=== PATIENT | female | born 1995 | race Two or more races ===

== ENCOUNTER 2017-08-18 17:56 | Emergency (ER) | payer SELFPAY ==
[~2017-08-18] VITALS: Ht 157.5 cm; Wt 55.8 kg
[~2017-08-18 17:56] MED LIST: HYDROCODON-ACETAMINOPHEN; OXYCODONE-ACETAMINOPHEN; TRAM50TA2
[2017-08-18 18:08] VITALS: BP 121/80
[2017-08-18 18:45] LABS: Urine Bilirubin Negative (Negative); Urine Blood Negative /uL (Negative); Urine Color Yellow (Yellow); Urine Glucose Normal (Normal); Urine Ketone Negative (Negative); Urine Mucus FEW (None Seen); Urine Nitrite Negative (Negative); Urine RBC 1 /hpf (0 - 4); Urine Squamous Epithelial Cell FEW /hpf (<5); Urine Urobilinogen Normal (Negative); Urine pH 6.5 (5.0-8.0)
[2017-08-18 19:18] LABS: Basophils # (auto) 0 uL; Basophils % (auto) 0.4 % (0.0-2.0); Eosinophils # (auto) 0.1 uL; Eosinophils % (auto) 0.7 % (0.0-7.0); Hematocrit 40.9 % (36.0-46.0); Hemoglobin 14.1 g/dL (12.2-16.2); Lymphocytes # (auto) 2.6 uL; Lymphocytes % (auto) 27.1 % (10.0-50.0); Mean Corpuscular Hemoglobin 30.4 pg (28.0-32.0); Mean Corpuscular Hgb Conc. 34.6 g/dL (32.0-36.0); Mean Corpuscular Volume 88.1 fL (80.0-100.0); Monocytes # (auto) 0.5 uL; Monocytes % (auto) 4.9 % (0.0-12.0); Neutrophils # (auto) 6.5 uL; Neutrophils % (auto) 66.9 % (37.0-80.0); Nucleated Red Blood Cells % 0.1 %; Platelet Count (auto) 381 10^3/uL (140-450); Red Cell Distribution Width 13.4 % (11.8-14.3); White Blood Cell 9.6 10^3/uL (4.4-10.8)
[2017-08-18 19:20] LABS: Albumin 4.2 g/dL (3.4-5.0); BUN/Creatinine Ratio 26.1; Bilirubin, Total 0.3 mg/dL (0.2-1.0); Calcium 9.2 mg/dL (8.5-10.1); Potassium 3.5 mmol/L (3.5-5.1); Total Protein 8.1 g/dL (6.4-8.2)
== END 2017-08-19 01:59 | disposition left against medical advice (07) ==
LOC: ER 18:04
DX: R10.30 Lower abdominal pain, unspecified (principal); Z53.21 Procedure and treatment not carried out due to patient leaving prior to being seen by health care provider
CPT/HCPCS: 36415; 80053; 81001; 81025; 85025

== ENCOUNTER 2022-03-02 17:12 | Emergency (ER) | payer MEDICAID ==
[~2022-03-02] VITALS: Ht 157.5 cm; Wt 70.3 kg
[2022-03-02 19:07] LABS: Basophils # (auto) 0 10 ^3/uL (0-0.2); Hemoglobin 11.1 g/dL (12.2-16.2); Nucleated Red Blood Cells % 0.1 %
[2022-03-02 19:10] LABS: Basophils % (auto) 0.2 % (0.0-2.0); Eosinophils # (auto) 0 10 ^3/uL (0-0.8); Eosinophils % (auto) 0.3 % (0.0-7.0); Hematocrit 32.6 % (36.0-46.0); Lymphocytes # (auto) 3.9 10 ^3/uL (0.4-5.4); Lymphocytes % (auto) 27.8 % (10.0-50.0); Mean Corpuscular Hgb Conc. 34.1 g/dL (32.0-36.0); Mean Corpuscular Volume 76.4 fL (80.0-100.0); Monocytes # (auto) 0.6 10 ^3/uL (0-1.3); Monocytes % (auto) 4.1 % (0.0-12.0); Neutrophils # (auto) 9.5 10 ^3/uL (1.6-8.6); Neutrophils % (auto) 67.6 % (37.0-80.0); Red Blood Cells 4.26 10^6/uL (4.0-5.20); Red Cell Distribution Width 14.2 % (11.8-14.3)
[2022-03-02 19:19] LABS: Albumin 3.2 g/dL (3.4-5.0); Calcium 8.8 mg/dL (8.5-10.1); Potassium 3.4 mmol/L (3.5-5.1)
[2022-03-02 19:23] LABS: Bilirubin, Total 0.2 mg/dL (0.2-1.0)
[2022-03-02] MEDS ORDERED: POTASSIUM CHL 20 Meq TABLET PO ONE (19:30)
[2022-03-02 19:47] LABS: Urine Amorphous Crystal FEW /hpf (None Seen); Urine Bacteria FEW /hpf (None Seen); Urine Blood Negative /uL (Negative); Urine Specific Gravity 1.017 (1.001-1.035); Urine WBC <1 /hpf (0 - 5)
[2022-03-02 20:28] LABS: BUN/Creatinine Ratio 18.3
== END 2022-03-02 21:04 | disposition home or self-care (01) ==
LOC: ER 17:12
DX: O26.891 Other specified pregnancy related conditions, first trimester (principal); E87.6 Hypokalemia; Z79.899 Other long term (current) drug therapy; Z88.8 Allergy status to other drugs, medicaments and biological substances; Z3A.09 9 weeks gestation of pregnancy
CPT/HCPCS: 36415; 80053; 81001; 84702; 85025

== ENCOUNTER 2022-05-19 16:51 | Observation (INO) | payer MEDICAID ==
[~2022-05-19] VITALS: Ht 157.5 cm; Wt 72.6 kg
[2022-05-19 18:03] LABS: Urine Bacteria NONE SEEN /hpf (None Seen); Urine Blood 2+ /uL (Negative); Urine Mucus FEW (None Seen); Urine Specific Gravity > 1.050 (1.001-1.035); Urine WBC 10 /hpf (0 - 5)
[2022-05-19 18:20] LABS: Amphetamine Screen, Urine NEGATIVE (NEGATIVE); Barbiturate Scree,Urine NEGATIVE (NEGATIVE); Benzodiazephine Screen, Urine NEGATIVE (NEGATIVE); Cannabinoid Screen, Urine NEGATIVE (NEGATIVE); Cocaine Screen, Urine NEGATIVE (NEGATIVE); Opiate Scree,Urine NEGATIVE (NEGATIVE); Phencyclidine Screen, Urine NEGATIVE (NEGATIVE)
[2022-05-19] MEDS ORDERED: PREN-96 PO (18:30)
[2022-05-19] MEDS ORDERED: NITR-87 PO (18:31)
[2022-05-19] MEDS: TERBUTALINE SULFATE 1 MG/ML 1ML VIAL SC SCH ×3 (18:47→19:44)
[2022-05-19] MEDS ORDERED: LACTATED RINGER'S 1,000 ML IV ONE (19:45)
[2022-05-19] MEDS ORDERED: ceFAZolin 2 GM in D5W 5% 100 ML IV ONE (19:45)
[2022-05-19] MEDS ORDERED: NIFEdipine 10 MG CAP PO ONE (19:45)
[2022-05-19] MEDS ORDERED: ceFAZolin 1GM/50ML 100 ML IV ONE (20:29)
[2022-05-19] MEDS ORDERED: ONDANSETRON HCL 4 MG/2 ML VIAL IV ONE (21:15)
[2022-06-01] MEDS ORDERED: NIF10C PO (03:44)
[2022-06-01] MEDS ORDERED: DOXY10TA OR (03:45)
[2022-06-01] MEDS ORDERED: HYDR250I6 IM (03:46)
== END 2022-05-19 22:59 | disposition home or self-care (01) ==
LOC: LDRP 16:51
PROVIDERS: ADMIT Obstetrics & Gynecology; ATTEND Obstetrics & Gynecology
DX: O62.9 Abnormality of forces of labor, unspecified (principal); O26.892 Other specified pregnancy related conditions, second trimester; R10.9 Unspecified abdominal pain; Z3A.20 20 weeks gestation of pregnancy; Z79.899 Other long term (current) drug therapy
CPT/HCPCS: 59025; 76815; 80307; 81001; 81002; 94760; 96361; 96365; 96372; 96375; G0378; J0690; J2405; J3105; J7060; 96360; 96374

== ENCOUNTER → 2022-05-26 | Outpatient (CLI) | payer MEDICAID ==
[~2022-05-26] MED LIST changes: +NITR-87 PO; +PREN-96 PO
[2022-05-26 09:53] LABS: Amphetamine Screen, Urine NEGATIVE (NEGATIVE); Barbiturate Scree,Urine NEGATIVE (NEGATIVE); Benzodiazephine Screen, Urine NEGATIVE (NEGATIVE); Cocaine Screen, Urine NEGATIVE (NEGATIVE); Opiate Scree,Urine NEGATIVE (NEGATIVE)
[2022-05-26 10:09] LABS: Cannabinoid Screen, Urine NEGATIVE (NEGATIVE); Phencyclidine Screen, Urine NEGATIVE (NEGATIVE)
[2022-05-27 07:06] LABS: RPR Non Reactive (Non Reactive)
== END | disposition home or self-care (01) ==
LOC: LAB 08:25
PROVIDERS: ATTEND Obstetrics & Gynecology
DX: Z34.00 Encounter for supervision of normal first pregnancy, unspecified trimester (principal); Z31.430 Encounter of female for testing for genetic disease carrier status for procreative management
CPT/HCPCS: 36415; 80307; 84112; 86592; 86703; 86762; 86850; 86900; 86901; 87340

== ENCOUNTER 2022-06-10 18:11 | Observation (INO) | payer MEDICAID ==
[~2022-06-10] VITALS: Ht 157.5 cm; Wt 72.6 kg
[~2022-06-10 18:11] MED LIST changes: +DOXY10TA OR; +HYDR250I6 IM; +NIF10C PO
[2022-06-10] MEDS ORDERED: NITROFURANTOIN 100 mg CAP PO ONE (19:15)
[2022-06-10] MEDS ORDERED: TERBUTALINE SULFATE 1 MG/ML 1ML VIAL SC ONE (19:15)
== END 2022-06-10 20:18 | disposition home or self-care (01) ==
LOC: LDRP 18:11
PROVIDERS: ADMIT Obstetrics & Gynecology; ATTEND Obstetrics & Gynecology
DX: O62.9 Abnormality of forces of labor, unspecified (principal); O26.892 Other specified pregnancy related conditions, second trimester; R10.2 Pelvic and perineal pain; Z3A.23 23 weeks gestation of pregnancy
CPT/HCPCS: 59025; 81002; 94760; 96372; G0378; J3105

== ENCOUNTER 2022-06-22 11:43 | Observation (INO) | payer MEDICAID ==
[~2022-06-22] VITALS: Ht 157.5 cm; Wt 72.6 kg
[2022-06-22] MEDS ORDERED: LACTATED RINGER'S 1,000 ML IV ONE (12:00)
[2022-06-22] MEDS: TERBUTALINE SULFATE 1 MG/ML 1ML VIAL SC SCH ×2 (12:17→13:03)
[2022-06-22 12:43] LABS: Urine Bacteria NONE SEEN /hpf (None Seen); Urine Blood Negative /uL (Negative); Urine Specific Gravity 1.018 (1.001-1.035); Urine WBC 1 /hpf (0 - 5)
[2022-06-22 12:55] LABS: Alcohol, Urine < 3.0 mg/dL (0-10); Amphetamine Screen, Urine NEGATIVE (NEGATIVE); Barbiturate Scree,Urine NEGATIVE (NEGATIVE); Benzodiazephine Screen, Urine NEGATIVE (NEGATIVE); Cannabinoid Screen, Urine NEGATIVE (NEGATIVE); Cocaine Screen, Urine NEGATIVE (NEGATIVE); Opiate Scree,Urine NEGATIVE (NEGATIVE); Phencyclidine Screen, Urine NEGATIVE (NEGATIVE)
== END 2022-06-22 14:05 | disposition home or self-care (01) ==
LOC: LDRP 11:43 → UNDOADMOB 11:43 → LDRP 11:51
PROVIDERS: ADMIT Obstetrics & Gynecology; ATTEND Obstetrics & Gynecology
DX: O60.02 Preterm labor without delivery, second trimester (principal); O46.92 Antepartum hemorrhage, unspecified, second trimester; O62.9 Abnormality of forces of labor, unspecified; O26.892 Other specified pregnancy related conditions, second trimester; N89.8 Other specified noninflammatory disorders of vagina; R11.0 Nausea; Z3A.25 25 weeks gestation of pregnancy; Z79.899 Other long term (current) drug therapy
CPT/HCPCS: 59025; 76815; 80307; 81001; 81002; 94760; 96360; 96361; 96372; G0378; J3105

== ENCOUNTER 2022-07-12 10:11 | Observation (INO) | payer MEDICAID ==
[~2022-07-12] VITALS: Ht 30.5 cm; Wt 0.5 kg
[2022-07-12] MEDS ORDERED: LACTATED RINGER'S 1,000 ML IV ONE (10:45)
== END 2022-07-12 12:03 | disposition home or self-care (01) ==
LOC: UNDOADMOB 10:11 → LDRP 10:11 → UNDODISOB 12:03
PROVIDERS: ADMIT Obstetrics & Gynecology; ATTEND Obstetrics & Gynecology
DX: O60.03 Preterm labor without delivery, third trimester (principal); O26.853 Spotting complicating pregnancy, third trimester; O26.893 Other specified pregnancy related conditions, third trimester; R10.9 Unspecified abdominal pain; Z3A.28 28 weeks gestation of pregnancy
CPT/HCPCS: 59025; 76815; 81002; 94760; 96360; G0378

== ENCOUNTER 2022-09-04 15:39 | Observation (INO) | payer MEDICAID ==
[~2022-09-04] VITALS: Ht 157.5 cm; Wt 72.6 kg
[2022-09-04] MEDS ORDERED: TERBUTALINE SULFATE 1 MG/ML 1ML VIAL SC ONE (16:15)
[2022-09-04] MEDS ORDERED: LACTATED RINGER'S 1,000 ML IV ONE (16:15)
[2022-09-04] MEDS ORDERED: BETAMETHASONE ACET (30mg/5ml) 5ml Vial 6mg/ml IM ONE ×2 (16:15→21:30)
[2022-09-04 17:19] LABS: Albumin 2.6 g/dL (3.4-5.0); Calcium 8.5 mg/dL (8.5-10.1)
[2022-09-04 17:22] LABS: BUN/Creatinine Ratio 19.2; Bilirubin, Total 0.3 mg/dL (0.2-1.0); Total Protein 5.8 g/dL (6.4-8.2)
[2022-09-04] MEDS ORDERED: ACETAMINOPHEN 325 MG TAB PO ONE (18:15)
[2022-09-04] MEDS ORDERED: hydrOXYzine 25 MG TAB or CAP PO ONE (18:15)
== END 2022-09-04 22:43 | disposition home or self-care (01) ==
LOC: LDRP 15:39
PROVIDERS: ADMIT Obstetrics & Gynecology Obstetrics; ATTEND Obstetrics & Gynecology Obstetrics
DX: O26.893 Other specified pregnancy related conditions, third trimester (principal); R10.2 Pelvic and perineal pain; O62.9 Abnormality of forces of labor, unspecified; O99.343 Other mental disorders complicating pregnancy, third trimester; F41.9 Anxiety disorder, unspecified; Z3A.35 35 weeks gestation of pregnancy
CPT/HCPCS: 36415; 59025; 76817; 76818; 80053; 81002; 94760; 96360; 96361; 96372; G0378; J0702; J3105